=== PATIENT | female | born 1940 | race Caucasian/White ===

== ENCOUNTER 2023-07-15 21:30 | Emergency (ER) | payer MEDICARE, OTHER ==
[~2023-07-15] VITALS: Ht 160 cm; Wt 68.0 kg
[2023-07-15 21:43] VITALS: BP 179/78; PULSE 88; RESP 16; TEMP 96.5; O2SAT 98
[2023-07-16 01:33] LABS: BASOPHILS # (AUTO) 0.1 K/uL (0.00-0.22); BASOPHILS % (AUTO) 1.4 % (0.0-2.0); EOSINOPHILS # (AUTO) 0.1 K/uL (0-0.4); EOSINOPHILS % (AUTO) 1.6 % (0.0-4.0); HEMATOCRIT 40.7 % (36-48); HEMOGLOBIN 14.1 g/dL (12.0-16.0); LYMPHOCYTES # (AUTO) 2.1 K/uL (2.5-16.5); LYMPHOCYTES % (AUTO) 24.5 % (20.5-51.1); MEAN CORPUSCULAR HEMOGLOBIN 31 pg (27-31); MEAN CORPUSCULAR HGB CONC 35 g/dL (33-37); MEAN CORPUSCULAR VOLUME 89.2 fL (80-94); MONOCYTES # (AUTO) 0.6 K/uL (0.8-1.0); MONOCYTES % (AUTO) 6.9 % (1.7-9.3); NEUTROPHILS # (AUTO) 5.6 K/uL (1.8-7.7); NEUTROPHILS % (AUTO) 65.6 % (42.2-75.2); PLATELET COUNT (AUTO) 362 K/uL (140-450); RED BLOOD CELL COUNT(AUTO) 4.56 MIL/uL (4.20-5.40); RED CELL DISTRIBUTION WIDTH 14.8 % (11.6-13.7); WHITE BLOOD COUNT (AUTO) 8.6 K/uL (4.8-10.8)
[2023-07-16 01:49] LABS: ALANINE AMINOTRANSFERASE 26 U/L (12-78); ALBUMIN 3.6 g/dL (3.4-5.0); ALKALINE PHOSPHATASE 145 U/L (50-136); ANION GAP 12.5 (8-16); ASPARTATE AMINOTRANSFERASE 20 U/L (15-37); CALCIUM 8.9 mg/dL (8.5-10.1); CARBON DIOXIDE 27.3 mmol/L (21-32); CHLORIDE 97 mmol/L (98-107); CREATININE 0.9 mg/dL (0.6-1.3); GLUCOSE 131 mg/dL (74-106); LIPASE 89 U/L (73-393); POTASSIUM 4.8 mmol/L (3.5-5.1); SODIUM SERUM 132 mmol/L (136-145); TOTAL BILIRUBIN 0.4 mg/dL (0.0-1.0); UREA NITROGEN, BLOOD 15 mg/dL (7-18)
[2023-07-16 01:56] LABS: APPEARANCE,URINE HAZY (CLEAR); BILIRUBIN,URINE NEGATIVE (NEGATIVE); BLOOD, URINE TRACE-I (NEGATIVE); COLOR,URINE YELLOW (YELLOW); LEUKOCYTE ESTERASE ,URINE 1+ (NEGATIVE); NITRITE, URINE NEGATIVE (NEGATIVE); PROTEIN,URINE NEGATIVE (NEGATIVE); UGLUCOSE NEGATIVE (NEGATIVE)
[2023-07-16 02:10] LABS: BACTERIA,URINE 3+ /HPF (None Seen); RBC,URINE NONE SEEN /HPF (0-5); SQUAMOUS EPITHELIAL CELL,UR 20-50 /LPF (0-3 (FEW)); WBC,URINE 0-5 /HPF (0-5); YEAST,URINE Moderate /HPF (None Seen)
[2023-07-16] MEDS ORDERED: cefTRIAXone 1,000 MG VIAL ONE (03:31)
[2023-07-16 03:47] LABS: LACTIC ACID 1.2 mmol/L (0.4-2.0)
[2023-07-16] MEDS ORDERED: HYDR-5191 PO (06:26)
[2023-07-16] MEDS ORDERED: LEVO0.124 PO (06:26)
[2023-07-16] MEDS ORDERED: BENA20TA PO (06:26)
[2023-07-16] MEDS ORDERED: AMLO5TAB PO (06:26)
[2023-07-16] MEDS ORDERED: METF-1243 PO (06:26)
[2023-07-16] MEDS ORDERED: ATOR10TA PO (06:26)
[2023-07-16] MEDS ORDERED: ASPI-1749 PO (06:26)
[2023-07-16] MEDS ORDERED: LACTULOSE 20 GM/30 ML UDC PO ONE (07:10)
[2023-07-16 11:05] VITALS: TEMP 98.4
[2023-07-16 11:11] VITALS: BP 127/58; PULSE 64; RESP 20; O2SAT 97
== END 2023-07-16 11:05 | disposition short-term general hospital (02) ==
LOC: MED 21:30
DX: K59.00 Constipation, unspecified (principal); Z20.822 Contact with and (suspected) exposure to COVID-19; E03.9 Hypothyroidism, unspecified; E11.9 Type 2 diabetes mellitus without complications; I10 Essential (primary) hypertension; Z79.4 Long term (current) use of insulin; Z79.899 Other long term (current) drug therapy; Z88.0 Allergy status to penicillin
CPT/HCPCS: 36415; 74176; 80053; 81001; 83605; 83690; 85025; 87040; 87086; 87426; 96365; 99285; J0696